=== PATIENT | female | born 1960 | race Caucasian/White ===

== ENCOUNTER 2019-01-21 08:24 | Inpatient (IN) | payer OTHER, SELFPAY ==
[2019-01-07 08:22] VITALS: BMI 41.9
[2019-01-21] VITALS (15 sets, daily range): BP systolic 125–165; BP diastolic 51–84; PULSE 74–97; RESP 12–21; TEMP 36.2–37.2; O2SAT 91–98; BMI 41.9
--- NOTE | 2019-01-21 | DI.RAD.S_ITS ---
PROCEDURE: XR PELVIS 1-2V INDICATIONS: INNER OP PIC TECHNIQUE: Intra-operative view of the pelvis and hip acquired. COMPARISON: None. FINDINGS: Bones: Intraoperative devices prior to placement of arthroplasty prostheses are in expected positions. No fractures or suspicious bony lesions. Soft tissues: Overlying surgical retractors are present, along with other intraoperative changes. IMPRESSION: Right hip arthroplasty with intraoperative device in appropriate position. Dictated by: Shira Romano M.D. on 01/21/2019 at 16:16 Approved by: Shira Romano M.D. on 01/21/2019 at 16:17
--- NOTE | 2019-01-21 06:00 | DI.RAD.S_ITS ---
PROCEDURE: XR HIP W PEL IF DONE RT 2V INDICATIONS: post op films TECHNIQUE: AP pelvis and lateral view of the right hip acquired. COMPARISON: None. FINDINGS: Bones: Patient is status post right hip arthroplasty, with hardware components in expected positions. The hip joint appears congruent. The visualized bony structures appear intact. Soft tissues: Overlying postoperative changes are noted. No suspicious soft tissue densities. IMPRESSION: Right hip prosthesis in anatomic alignment. Dictated by: Shira Romano M.D. on 01/21/2019 at 15:08 Approved by: Shira Romano M.D. on 01/21/2019 at 15:08
[2019-01-21] MEDS: ACETAMINOPHEN 325 MG TABLET 975 MG PO ×3 (08:59→20:10)
[2019-01-21] MEDS: PREGABALIN 75 MG CAPSULE PO (08:59)
[2019-01-21] MEDS: LACTATED RINGERS 1,000 ML 42 ML IV ×2 (09:17→13:59)
[2019-01-21] MEDS: VANCOMYCIN 1,000 MG/200 ML PIGGYBACK 200 MG IV (09:32)
--- NOTE | 2019-01-21 10:17 | PM.PREOP ---
Pre-operative Note Interval Note History & Physical reviewed/Exam performed by Physician: Yes Changes to H&P: No
--- NOTE | 2019-01-21 10:19 | P.OP_ITS ---
Operative Date/Time/Diagnoses Date of procedure: 01/21/19 Time of procedure: 11:17 Pre-op diagnosis: right hip OA Post-op diagnosis: same Procedure & Clinicians Procedure: Right total hip arthroplasty Same procedure as scheduled: Yes Indications: The patient has had progressively worsening right hip pain with radiographic changes consistent with arthritis. Non-operative management has failed and the patient has requested total hip replacement. The risks, benefits and alternatives to surgery were discussed with the patient prior to proceeding. Risks discussed included, but were not limited to, failure to relieve pain, leg length discrepancy, dislocation, stiffness, infection, nerve damage, deep venous thrombosis, pulmonary embolism, stroke, coma, heart attack, permanent paralysis and , as well as the potential need for eventual revision of the prosthetic. Surgeon: Sommer Hunter Bodywork Therapist: Hilary Jackson Anesthesia Type: Spinal Operative Notes Findings: Severe right hip osteoarthritis, good stability Closure Type: primary Specimen(s): none sent Prosthetic devices, grafts, tissues, transplants, or devices: Hunter [employer]hew 50 R3 cup, 115 mm screw, 32 x 50 polyethylene liner, size 5 standard offset anthology, 32+ 0 head Oxinium Applied: drain(s) Estimated Blood Loss (mL): 250 Blood products transfused: none Procedure in detail: The patient was seen in the pre-operative area, where the patient identified the right hip as the operative site and this was marked with my initials. The patient received pre-operative antibiotics and was taken to the operating room and placed on the operative table in the left lateral decubitus position after satisfactory anesthesia. A maritime officer out was performed. The right leg was prepared from the ankle to the iliac crest with ChloroPrep in the usual fashion and draped through sterile drapes. The hip was approached through an approximately 24 cm incision centered over the greater trochanter and curving gently posteriorly as it went proximally. She had significant subcutaneous tissues about 7-8 cm from skin to fascia. This was carried sharply to the fascia kristina, which was divided and retracted with a self retaining retractor. The trochanteric bursa was excised with care being taken to avoid the sciatic nerve, which was identified and protected throughout the case. The short external rotators were incised and the capsulomuscular flap was raised and tagged for later repair. The hip was dislocated, and a femoral neck osteotomy performed approximately 15 mm above the lesser trochanter. Retractors were placed around the femur. The canal was opened with a box cutting osteotome, followed by a T handled reamer and a lateralizing reamer. The chili pepper broach was then used, followed by sequential broaching until there was good stability of the broach in the femur. Retractors were placed to expose the acetabulum. The labrum and central soft tissues were removed. Reaming was performed initially going up in 2 mm increments, then 1 mm increments until good bite was obtained with an odd sized reamer. The cup 1 mm larger than the last reamer was then inserted using the appropriate anteversion guides. A 15 mm screw was inserted to further stabilize the cup. The position was meticulously checked. A trial neutral liner was placed. The broach was placed in the canal. A trial head and neck were then placed and the hip relocated and checked for leg length and stability. An intraoperative film confirmed the component position and no evidence of fracture. The patient was stable in the position of sleep, of squatting, and could be put through a range of motion with 45 degrees internal rotation without dislocation. At 90 degrees flexion, internal rotation to 70 was possible before dislocation. This was felt to be satisfactory and the appropriate components were opened, and the trials were removed. The acetabular liner was impacted into position. The final stem was then impacted into the prepared femoral canal. A brief Betadine soak was performed while trialing with head options. The hip was meticulously irrigated with normal saline. Finally the femoral head was impacted onto the stem. She was pretty tight at this point we actually had to give her some supplemental succinylcholine to reduce the hip. The acetabulum was cleared of all material and the hip relocated one final time. The capsulomuscular flap was then repaired to the greater trochanter though an awl hole using the tag sutures. The short external rotators were repaired with a nonabsorbable suture. A deep drain was placed and brought out anteriorly. The fascia kristina was closed with Vicryl. The subcutaneous layer was closed with barbed sutures and SteriStrips. An Aquacel Ag dressing was applied and the patient was taken to recovery having tolerated the procedure well. Complications: none Condition: stable Disposition: Acute Care Plan for aftercare: The patient will be maintained on a standard total hip replacement protocol with weight bearing as tolerated and posterior hip precautions. The patient will receive Aspirin and sequential compression devices for DVT prophylaxis. The patient will be discharged home when safe for the home environment.
[2019-01-21] MEDS: CEFAZOLIN 2 GM/100 ML FROZ.PIGGY IV ×2 (11:05→20:09)
--- NOTE | 2019-01-21 11:48 | SUR.OPER ---
Lateral on padded OR bed. Gel axillary roll. Arms secured on padded armboard with pillow supporting top arm. Padded hip positioner braces x4 - anterior and posterior chest and pelvis. Additional gel pad used anterior pelvis. Gel pad under bottom leg from knee to foot and secured with tape over sheet.
[2019-01-21] MEDS: BUPIVACAINE LIPOSOME 266 MG/20 ML VIAL INJ (12:01)
[2019-01-21] MEDS: BUPIVACAINE 0.25% W/ EPI 30 ML VIAL 60 ML INJ (12:02)
[2019-01-21] MEDS: EPINEPHrine 1 MG/ML AMPUL IRR (12:02)
[2019-01-21] MEDS: TRANEXAMIC ACID 1,000 MG VIAL 1000 MG INJ (12:04)
[2019-01-21] MEDS: fentaNYL 100 MCG/2 ML INJ 50 MCG IV ×2 (14:36→14:56)
[2019-01-21] MEDS: OXYCODONE IR 5 MG TABLET PO ×3 (15:04→20:10)
[2019-01-21] MEDS: LACTATED RINGERS 1,000 ML 125 ML IV (16:50)
[2019-01-21] MEDS: diazePAM 5 MG TABLET PO (17:16)
--- NOTE | 2019-01-21 18:07 | PT.IIE ---
Current Diagnoses Unilateral primary osteoarthritis, right hip (01/21/19) Surgery Performed Operation Date: 01/21/19 10:45 Actual Procedures p Total Hip Arthroplasty(Right) - Sommer Hunter MD Surgical History (Last Updated 01/07/19 @ 09:30 by Lashawn Mascorro, RN) History of ear surgery (Acute) History of lumbar laminectomy (Acute ~2012) History of nasal surgery (Acute ~2007) History of tonsillectomy and adenoidectomy (Acute) Hx of laparoscopy (Acute) Medical History (Last Updated 01/07/19 @ 09:25 by Lashawn Mascorro RN) Arthritis (Acute) Bronchitis (Acute) GERD (gastroesophageal reflux disease) (Acute) H/O: hysterectomy (Acute) HLD (hyperlipidemia) (Acute) HTN (hypertension) (Acute) Hypothyroidism (Acute) Neuropathy (Acute) Osteoarthritis (Acute) Seasonal allergies (Acute) Sleep apnea (Acute) Physical Therapy Inpatient Evaluation/Re-Eval M1 PT/OT-IP Prior Functional Status Start: 01/21/19 17:18 Freq: NEEDED Status: Active Protocol: Document 01/21/19 18:00 [facility] (Rec: 01/21/19 18:07 [facility] [id number]) Medical Review Prior Functional Status Medical History Reviewed Yes Diet/Fluid Consistency Regular Communication WNL Mobility and Gait indep without AD but repors she had a bad gait and slow gait d/t pain that caused her to have L achilles issues Activities of Daily Living and IADL's Indep with ADLs and typically helps with cooking and cleaning. Social History Household Members significant other Living Arrangements House Number of Floors (Floors) One Floor Number of Stairs To Enter/Railing? 1STE; has a step up to get into bed Home Environment Standard Height Toilet High Toilet Tub/Shower Home Equipment Raised Toilet Seat Without Armrests Shower Seat without Backrest Grab Bars In Shower Employment Status Retired Additional Social History Comment is working and plans to take Wed and Thurs off. He has Sat and Sun off M2 PT-IP Current Condition Start: 01/21/19 17:18 Freq: NEEDED Status: Active Protocol: Document 01/21/19 18:00 [facility] (Rec: 01/21/19 18:07 [facility] [id number]) Physical Therapy Current Condition Current Condition Evaluation Date 06/25/19 Treatment Diagnosis R ERASMO post approach Precautions Posterior Hip Precautions No Hip Flexion > 90 degrees No Hip Internal Rotation No Hip Adduction Weight Bearing Status Weight Bearing Status Weight Bear as Tolerated M3 PT-IP Subjective Start: 01/21/19 17:18 Freq: NEEDED Status: Active Protocol: Document 01/21/19 18:00 [facility] (Rec: 01/21/19 18:07 [facility] [id number]) Subjective Physical Therapy Visit Type Type Initial Evaluation Visit Start Time 17:15 Visit Stop Time 17:55 Total Visit Minutes 40 Number of EMBROIDERY OPERATOR Visits 0 Physical Therapy Visit Comments Patient Goals To go home tomorrow Therapy Pain Assessment Pain When Pain Assessed At Rest Pain Present Pain Present Pain Reported Location R buttocks Description Aching Burning Pain Management Techniques Apply Cold Re-positioning M4 PT-IP Mobility and Gait Start: 01/21/19 17:18 Freq: NEEDED Status: Active Protocol: Document 01/21/19 18:00 [facility] (Rec: 01/21/19 18:07 [facility] [id number]) PT-Bed Mobility Assessment Supine to Sit Supine to Sit Minimal Assistance Bedrails Scooting Scooting to Edge of Bed Standby Assistance PT-Transfer Assessment Sit to and From Stand Sit to and from Stand Contact Guard Assistance Use of Upper Extremities Equipment Transfer Assistive Device Gait Belt Front Wheeled Walker Orthotic/Prosthetic Devices or Brace: No Comments Mobility Comments Pt stood from bed to ambulate then from toilet to ambulate. CGA for both sit<>Stand w/use of UEs Gait Assessment Gait Gait Assistance Required: Contact Guard Assist Distance (Feet) 50 Able to Maintain Weight Bearing Status Yes During Gait Assistive Devices Assistive Device Gait Belt Front Wheeled Walker Orthotic/Prosthetic Devices or Brace: No Gait Deviations General Gait Pattern Antalgic Decreased Stride Length Factors Limiting Gait Function Factors Limiting Gait Function Decreased Strength Pain Poor Balance Comments Gait Comments Pt able to amb around room 2x then sit on toilet and wipe self then amb to sink to wash hands then to chair CGA. Cueing for sit <>stand PT-Balance Assessment Sitting Balance and Reactions Static Sitting Balance Ability Normal Dynamic Sitting Balance Ability Normal Standing Balance and Reactions Static Standing Balance Ability Fair Dynamic Standing Balance Ability Fair Device Used FWW M5 PT-IP Objective Assessments Start: 01/21/19 17:18 Freq: NEEDED Status: Active Protocol: Document 01/21/19 18:00 [facility] (Rec: 01/21/19 18:07 [facility] [id number]) Orientation Orientation/Cognition Level of Alertness Alert Gross Range of Motion Lower Extremity ROM Assessment Right Impaired Strength Lower Extremity Strength Assessment Right Impaired M6 PT-IP Treatment Start: 01/21/19 17:18 Freq: NEEDED Status: Active Protocol: Document 01/21/19 18:00 [facility] (Rec: 01/21/19 18:07 [facility] [id number]) Physical Therapy Treatment Education Education Provided Precautions Weight Bearing Status Post-Op Packet Safety M7 PT-IP Assessment and Plan Start: 01/21/19 17:18 Freq: NEEDED Status: Active Protocol: Document 01/21/19 18:00 [facility] (Rec: 01/21/19 18:07 [facility] [id number]) PT Summary Assessment and Plan Potential Rehabilitation Potential Good Status of Condition at Evaluation Evolving Summary Impairments Pain ROM Strength Balance Bed Mobility Transfers Gait Assessment Summary Pt is doing well with her mobility on day of surgery, requiring min A only for bed mobility and pt encouraged to try to do as much as she can with just supervision of nursing vs physical assist as she is hopeful to go home tomorrow. She is likely to achieve that if she can ambulate appropriate household distances safely and navigate step up into bed and into house with SBA. Goals Bed Mobility Goal Independent Transfer Goal Independent Gait Goal Standby Assistance Gait Distance 150ft Other Goals up/down 1 step with FWW SBA Days to Meet Goals 3 Frequency of Treatment Frequency Of Treatment Twice a Day Treatment Plan Physical Therapy Treatment Plan Bed Mobility Training Transfer Training Gait Training Therapeutic Exercise Balance Retraining Post Op Education Discharge Planning Hot or Cold Pack Neuromuscular Re-ed Recommendations To Nursing Amount of Assist Needed 1 Person Assist Discharge Recommendations PT Discharge Recommendations Home with Assistance Outpatient PT
[2019-01-21] MEDS: PRAVASTATIN 20 MG TABLET 10 MG PO (20:12)
[2019-01-21] MEDS: TRAMADOL 50 MG TABLET PO (20:12)
[2019-01-21] MEDS: DOCUSATE 100 MG CAPSULE PO (20:12)
[2019-01-21] MEDS: dilTIAZem CD 240 MG CAP PO (20:12)
[2019-01-22] MEDS: OXYCODONE IR 5 MG TABLET PO ×3 (00:24→08:45)
[2019-01-22 00:30] VITALS: BP 117/77; PULSE 81; RESP 16; TEMP 36.7; O2SAT 96
[2019-01-22] MEDS: LACTATED RINGERS 1,000 ML 125 ML IV (02:00)
[2019-01-22] MEDS: CEFAZOLIN 2 GM/100 ML FROZ.PIGGY IV (03:08)
[2019-01-22 05:38] LABS: Hematocrit 35.3 % (36-46); Hemoglobin 11.8 g/dL (12.0-16.0)
[2019-01-22 05:50] VITALS: BP 136/70; PULSE 90; RESP 20; TEMP 36.4; O2SAT 95
[2019-01-22] MEDS: diazePAM 5 MG TABLET PO (05:53)
--- NOTE | 2019-01-22 06:42 | PC.NURSE ---
Medicated with 2 doses of 5 mg. Percolone & requested Valium 5 mg. PO for muscles spasms with good relief. SCD's was off for 1 hour when she ambulated to the BR. Tried to applied her SCD's after it was off for 1 hour, but she refused to put SCD's back on. States I will do my ankle waving & move my legs. Wore her SCD's all night. Will monitor.
--- NOTE | 2019-01-22 07:57 | PM.DS.1 ---
History of Present Illness Date Patient Seen: 01/22/19 Time Patient Seen: 07:58 Chief complaint: [id number] Narrative: Hospital day 2, postop day 1 following right posterior total hip arthroplasty by Dr. Hunter. Patient remained stable postoperatively. She did work well with PT yesterday. She is a [facility] patient and anticipate going home today. She does have physical therapy scheduled at [facility] in [place]. Hemovac with 55 mL during the past 8 hours. Discharge Providers Date of admission: 01/21/19 08:24 Discharge Date: 01/22/19 Consults: 01/21/19 06:00 Consult to Anesthesiology Routine Comment: Consulting Provider: Anesthesiologist Reason for consultation: Regional block for post operative pain control 01/21/19 09:06 Consult to Respiratory Therapy Evaluate & Treat Comment: Physician Instructions: Evaluate and treat 01/21/19 16:23 Consult to Discharge Planning Routine Comment: Consult to Physical Therapy Evaluate & Treat Comment: Physician Instructions: post op ERASMO protocol Consult to Respiratory Therapy Evaluate & Treat Comment: Physician Instructions: Evaluate and treat Discharge provider: Jorge Souza PA-C Summary Discharge Diagnosis: Status post right total hip arthroplasty Hospital Course: Patient brought to hospital on 01/21/2019 for above noted surgery. She remained stable postoperatively. Progressed well with physical therapy. Ready for discharge home on postop day 1. Exam Vital Signs (past 8 hours): - 01/22/19 00:30 01/22/19 05:50 Temperature 98.1 F 97.6 F Pulse Rate 81 90 Respiratory Rate 16 20 Blood Pressure 117/77 136/70 Pulse Oximetry 96 95 Oxygen Delivery Method Room Air Oxygen Flow Rate 0 Narrative Exam Narrative: Alert, oriented no acute distress resting in bed. Legs. Jake dressing to right posterior hip incision intact without signs of infection or inflammation. Good vacuum. Hemovac in place. No calf pain or swelling. Pulses symmetrical. Objective Labs Result Diagrams: 01/22/19 05:00 Labs: Laboratory Results - last 24 hr 01/22/19 05:00 Hgb 11.8 L Hct 35.3 L Discharge Plan Discharge Plan Patient Disposition: Home Discharge Med Rec/Prescriptions Prescriptions: New enoxaparin [Lovenox] 40 mg/0.4 mL Syringe 40 mg subcut DAILY Qty: 9 RF: 0 Continued diltiazem HCl 240 mg Capsule,Extended Release 24hr 240 mg PO BEDTIME RF: 0 potassium 99 mg Tablet 99 mg PO DAILY RF: 0 pravastatin 10 mg Tablet 10 mg PO BEDTIME RF: 0 ibuprofen 200 mg Tablet 400 mg PO QD-BID PRN (Reason: Pain) RF: 0 ipratropium bromide 42 mcg (0.06 %) [place],Non-Aerosol 2 spray INTRANASAL QAM RF: 0 fluticasone propionate 50 mcg/actuation [place],Suspension 1 spray INTRANASAL DAILY RF: 0 magnesium oxide 250 mg magnesium Tablet 250 mg PO DAILY RF: 0 levocetirizine 5 mg Tablet 5 mg PO DAILY RF: 0 thyroid (pork) [[place] Thyroid] 30 mg Tablet 30 mg PO DAILY RF: 0 tramadol 50 mg Tablet 50 mg PO BEDTIME RF: 0 cetirizine [Zyrtec] 10 mg Tablet 10 mg PO DAILY RF: 0 Provider Discharge Instructions Diet: Diet as Tolerated Activity: Ambulate as tolerated. Use walker as needed. Right posterior total hip arthroplasty protocol x6 weeks postop. Cold/Heat Therapy: Cold pack to right hip as needed. Skin/Wound/Dressing Care Report to your healthcare provider any signs of infection, such as:: chills, fever, night sweats, increased pain, unusual drainage and unusual redness Dressing: Keep jake dressing in place until postop visit. Visit Report/Discharge Packet Instructions: DI for Hip Replacement Discharge Data Attending Provider: Sommer Hunter Admit Date/Time: 01/21/19 08:24
--- NOTE | 2019-01-22 08:00 | P.DS_ITS ---
History of Present Illness Date Patient Seen: 01/22/19 Time Patient Seen: 07:58 Chief complaint: [id number] Narrative: Hospital day 2, postop day 1 following right posterior total hip arthroplasty by Dr. Hunter. Patient remained stable postoperatively. She did work well with PT yesterday. She is a [facility] patient and anticipate going home today. She does have physical therapy scheduled at [facility] in [place]. Hemovac with 55 mL during the past 8 hours. Discharge Providers Date of admission: 01/21/19 08:24 Discharge Date: 01/22/19 Consults: 01/21/19 06:00 Consult to Anesthesiology Routine Comment: Consulting Provider: Anesthesiologist Reason for consultation: Regional block for post operative pain control 01/21/19 09:06 Consult to Respiratory Therapy Evaluate & Treat Comment: Physician Instructions: Evaluate and treat 01/21/19 16:23 Consult to Discharge Planning Routine Comment: Consult to Physical Therapy Evaluate & Treat Comment: Physician Instructions: post op ERASMO protocol Consult to Respiratory Therapy Evaluate & Treat Comment: Physician Instructions: Evaluate and treat Discharge provider: Jorge Souza PA-C Summary Discharge Diagnosis: Status post right total hip arthroplasty Hospital Course: Patient brought to hospital on 01/21/2019 for above noted surgery. She remained stable postoperatively. Progressed well with physical therapy. Ready for discharge home on postop day 1. Exam Vital Signs (past 8 hours): - 01/22/19 00:30 01/22/19 05:50 Temperature 98.1 F 97.6 F Pulse Rate 81 90 Respiratory Rate 16 20 Blood Pressure 117/77 136/70 Pulse Oximetry 96 95 Oxygen Delivery Method Room Air Oxygen Flow Rate 0 Narrative Exam Narrative: Alert, oriented no acute distress resting in bed. Legs. Jake dressing to right posterior hip incision intact without signs of infection or inflammation. Good vacuum. Hemovac in place. No calf pain or swelling. Pulses symmetrical. Objective Labs Result Diagrams: 01/22/19 05:00 Labs: Laboratory Results - last 24 hr 01/22/19 05:00 Hgb 11.8 L Hct 35.3 L Discharge Plan Discharge Plan Patient Disposition: Home Discharge Med Rec/Prescriptions Prescriptions: New enoxaparin [Lovenox] 40 mg/0.4 mL Syringe 40 mg subcut DAILY Qty: 9 RF: 0 Continued diltiazem HCl 240 mg Capsule,Extended Release 24hr 240 mg PO BEDTIME RF: 0 potassium 99 mg Tablet 99 mg PO DAILY RF: 0 pravastatin 10 mg Tablet 10 mg PO BEDTIME RF: 0 ibuprofen 200 mg Tablet 400 mg PO QD-BID PRN (Reason: Pain) RF: 0 ipratropium bromide 42 mcg (0.06 %) [place],Non-Aerosol 2 spray INTRANASAL QAM RF: 0 fluticasone propionate 50 mcg/actuation [place],Suspension 1 spray INTRANASAL DAILY RF: 0 magnesium oxide 250 mg magnesium Tablet 250 mg PO DAILY RF: 0 levocetirizine 5 mg Tablet 5 mg PO DAILY RF: 0 thyroid (pork) [[place] Thyroid] 30 mg Tablet 30 mg PO DAILY RF: 0 tramadol 50 mg Tablet 50 mg PO BEDTIME RF: 0 cetirizine [Zyrtec] 10 mg Tablet 10 mg PO DAILY RF: 0 Provider Discharge Instructions Diet: Diet as Tolerated Activity: Ambulate as tolerated. Use walker as needed. Right posterior total hip arthroplasty protocol x6 weeks postop. Cold/Heat Therapy: Cold pack to right hip as needed. Skin/Wound/Dressing Care Report to your healthcare provider any signs of infection, such as:: chills, fever, night sweats, increased pain, unusual drainage and unusual redness Dressing: Keep jaek dressing in place until postop visit. Visit Report/Discharge Packet Instructions: DI for Hip Replacement Discharge Data Attending Provider: Sommer Hunter Admit Date/Time: 01/21/19 08:24
--- NOTE | 2019-01-22 08:42 | CM.DANOTE ---
DCP/Assessment: Reviewed chart. Patient is a 58yr old female admitted to [facility] for right ERASMO performed by Dr. Hunter on 01-21-19. Primary payor is 1)Nestor Taylor. No PCP listed. Met with patient explained CM/SW role. Patient alert and oriented sitting in recliner at time of visit. Patient reports that she resides with her janae/Jb in [place]. Patient plans to d/c home today. Patient seen and cleared by therapy. Patient reports that she has all needed DME and plans to do outpatient therapy at Orthoped[facility] in [facility]. P: Home today. ERNESTINA Spears Discharge Planning/Care Management CM Discharge Assessment Start: 01/22/19 08:39 Freq: Status: Active Protocol: Document 01/22/19 08:40 KJS (Rec: 01/22/19 08:42 KJS [id number]) Discharge Planning Assessment Assigned Chemistry Technologist ERNESTINA Spears Contact [facility] Advance Directives? Yes Advance Directives on File Yes History Provided By Patient Medical Record Prior Living Arrangements House Household Members significant other Type of transporation used prior to Drives own vehicle admit Independent with ADL's Yes Is patient alert and oriented? Yes Caregiver for Another No DME Already Rented / Owned FWW / Walker Cane Patient/Family Preference OP PT Therapy Barriers to Discharge No Discharge Plan Home Transportation Arrangement [facility] to provide transport. Referrals Initiated None needed Whiteboard Updated in Patient Room with Yes name and ext. # of Chemistry Technologist Review Status In Process Next Review Type Continued Stay Review Pre-Anesthesia Assessment Start: 01/07/19 08:22 Freq: Status: Active Protocol: Document 01/07/19 08:22 CAB (Rec: 01/07/19 09:45 CAB [id number]) Pre-Anesthesia Assessment PAC Comment UA cx'd/pending Patient Information Reviewed Via Phone Assessment Assessment Completed With Patient Diagnostic Results BMP/CMP CBC EKG Urinalysis Other Comment A1c. Outside labs/EKG 01/07/19 scanned to record Primary Care Provider Seen Specialist in Last 12 Months Yes Specialist Seen ENT Orthopedist Primary Language [place] It Security Consultant Required No Height 167.64 cm Weight 117.934 kg Body Mass Index (BMI) 41.9 Hearing Ability Normal Visual Assist Glasses Dentition Type Teeth, Natural Present Barriers to Learning None Other Aids No Hx Anesthesia Reactions Yes: Nausea/vomiting s/p laparoscopy Hx Family Anesthesia Reaction No Hx Malignant Hyperthermia No Hx Blood Transfusions No Anesthesia Review Requested No Manager Environmental No alcohol intake current alcohol intake frequency 0-2 drinks per day Smoking Status Former smoker how long ago did patient quit smoking Quit 2008 Substance Use Type marijuana other Comment CBD tincture, edible marijuana Pain Present Pain Reported Musculoskeletal Symptoms Abnormal Gait Back Pain Difficulty Walking Joint Pain Neck Pain History of Falling (Recent or History of No ) Patient is completely paralyzed or No completely immobile Mental Status Oriented to own ability Is patient on oxygen? No Does patient have MAC/SOB No Hx Sleep Apnea Yes CPAP/BIPAP use prescribed and used routinely Will Bring CPAP/BIPAP DOS Yes Currently Taking a Beta Leticia No Can You Climb a Flight of Stairs Without Yes SOB Hx Chest Pain No Hx SOB No Hx Syncope or Dizziness No Anti-Coagulant Therapy No Has a Vp Digital Marketing Social Media And Crm No Cardiac Testing No Hx Pacemaker/ICD No Pacemaker Rep Required? No Cardiac Clearance Received Not Applicable Diet Type At Home Regular Gluten Free Ketogenic Low Carb dysphagia No Bladder Pattern Incontinent, Stress Urgency Urinary Catheter Present No Hx Urinary Self Catheterization No Diabetes No HgbA1C 5.4 Date 01/07/19 Patient No Lactating No Hx Drug Resistant Organism No Presence of External or Internal Medical Yes: CPAP Devices Have you traveled outside the [facility] in the last 30 days? Marital Status Lives With significant other Prior Living Arrangements House Number of Floors (Floors) One Floor Support System Friend(s) Significant Other Does the Patient Have Assistance After Yes Surgery Patient Discharge Plan Description Return Home Comment Pt not advised on length of stay per surgeon's office Feels Safe in Current Environment Yes Been Physically Hurt or Threatened By a No Person in Current Environment Do you have thoughts of harming yourself None or others? Are you currently considering suicide? No Do you have a plan to hurt yourself or No Plan others? Do You Have Any Spiritual Beliefs That No May Affect Your HC Choices? Do You Have Any Cultural Practices That No May Affect Your HC Choices? Spiritual Referral None Comment Scientologist Who Can We Speak to About Patient's Care Family, friends Identifying Code for Release of Patient Declines to issue Information Health Care Proxy/Next of Kin Jb MacS.O.) Health Care Proxy Emergency Contact Name Jb (S.O.) Emergency Contact Advance Directives? No: Information mailed to patient Power of Correction Officer [place] [facility] No PAC Instructions Bring CPAP/BIPAP Do not shave/clip surgical site Durable medical equipment Medications to take/avoid Nasal antibiotic No ETOH/petroleum product on skin DOS NPO Post-op transportation Pre-surgical wash Sturdy shoes/comfortable clothes Do not bring valuables and remove jewelry
[2019-01-22] MEDS: THYROID, PORK 30 MG TABLET PO (08:45)
[2019-01-22] MEDS: ACETAMINOPHEN 325 MG TABLET 975 MG PO (08:46)
[2019-01-22] MEDS: MAGNESIUM OXIDE 400 MG TABLET 200 MG PO (08:46)
[2019-01-22] MEDS: DOCUSATE 100 MG CAPSULE PO (08:47)
[2019-01-22] MEDS: ENOXAPARIN 40 MG/0.4 ML SYRINGE SUBCUT (08:47)
[2019-01-22] MEDS: LORATADINE 10 MG TABLET PO (08:47)
[2019-01-22 09:11] VITALS: BP 112/89; PULSE 97; RESP 18; TEMP 36.7; O2SAT 97
--- NOTE | 2019-01-22 10:35 | PC.NURSE ---
Pt given 5mg of po oxycodone for pain control to R.hip.. Incision is dressed with a jake drain dressing. Motor connected to dressing is flashing green and working well. CMS wnl and ppx2. Pt is transferring with 1pa and walker well. She has a hemvac drain that is putting out minimal drainage, this will be pulled when pts discharges home later today. Visiting with and working with physical therapy now.
== END 2019-01-22 11:48 | disposition home or self-care (01) | DRG 470 ==
PROVIDERS: Admitting Provider Orthopaedic Surgery; Visit Provider Orthopaedic Surgery
PROC: 0SR90JZ Replacement of Right Hip Joint with Synthetic Substitute, Open Approach (ICD-10-PCS; CPT 27130; principal; 2019-01-21 10:45)
DX: M16.11 Unilateral primary osteoarthritis, right hip (principal); Z68.41 Body mass index [BMI] 40.0-44.9, adult; G47.33 Obstructive sleep apnea (adult) (pediatric); I10 Essential (primary) hypertension; Z87.891 Personal history of nicotine dependence; E66.01 Morbid (severe) obesity due to excess calories
CPT/HCPCS: 36415; 72170; 73502; 85014; 85018; 97116; 97162; 97530; C1776; C9290; J0171; J0690; J1650; J2250; J2704; J3010

== ENCOUNTER 2023-06-12 06:08 | Day surgery (SDC) | payer OTHER, SELFPAY ==
[2019-01-21 17:18] VITALS: BMI 41.9
[2023-06-04 09:47] VITALS: BMI 42.7
[2023-06-12] VITALS (14 sets, daily range): BP systolic 117–146; BP diastolic 50–67; PULSE 18–86; RESP 12–31; TEMP 35.7–36.7; O2SAT 90–98; BMI 41.5
--- NOTE | 2023-06-12 06:00 | DI.RAD.S_ITS ---
PROCEDURE: XR KNEE LT 1TO2V INDICATIONS: TKA TECHNIQUE: 2 view(s) of the knee acquired. COMPARISON: [facility] Jones Lomeli, CR, XR KNEE 4+ VIEWS LEFT, 03/09/2023, 11:02. FINDINGS: Bones: Patient is status post knee joint arthroplasty. Hardware components are in expected positions. Visualized bony structures are intact. Soft tissues: Overlying postoperative changes are noted. IMPRESSION: Status post interval left total knee arthroplasty without evidence for hardware complication. Dictated by: Dandre Nunez M.D. on 06/12/2023 at 18:50 Approved by: Dandre Nunez M.D. on 06/12/2023 at 18:51
[2023-06-12] MEDS: VANCOMYCIN 1,000 MG/200 ML PIGGYBACK 200 MG IV (06:53)
[2023-06-12] MEDS: ACETAMINOPHEN 325 MG TABLET 975 MG PO (06:56)
[2023-06-12] MEDS: LACTATED RINGERS 1,000 ML 42 ML IV ×2 (06:58→08:55)
--- NOTE | 2023-06-12 07:40 | P.OP_ITS ---
Operative Date/Time/Diagnoses Date of procedure: 06/12/23 Time of procedure: 07:40 Pre-op diagnosis: left knee OA Post-op diagnosis: same Procedure & Clinicians Procedure: left total knee arthroplasty Same procedure as scheduled: Yes Indications: The patient has had progressively worsening right knee pain with radiographic changes consistent with arthritis. Non-operative management has failed and the patient has requested total knee replacement. The risks, benefits and alternatives to surgery were discussed with the patient prior to proceeding. Risks discussed included, but were not limited to, failure to relieve pain, stiffness, infection, nerve damage, deep venous thrombosis, pulmonary embolism, stroke, coma, heart attack, permanent paralysis and , as well as the potential need for eventual revision of the prosthetic. Surgeon: Sommer uHnter Television And Radio Repairer: Bakair Urrutia Anesthesia Type: General Operative Notes Findings: Severe left knee OA, adequate stability Closure Type: primary Specimen(s): none sent Prosthetic devices, grafts, tissues, transplants, or devices: Hunter and nephew ani BCS 2 size femur 5, size 3 tibia, +9 poly, 32 x 7-1/2 mm patella Estimated Blood Loss (mL): 250 Blood products transfused: none Tourniquet time (min): 74 Procedure in detail: The patient was seen in the pre-operative area, where the patient identified the right knee as the operative site and this was marked with my initials. The patient received pre-operative antibiotics, and was taken to the operating room and placed on the operative table in the supine position. After satisfactory anesthesia, a oil field pipeline supervisor out was performed. The right leg was encircled with a tourniquet about the proximal thigh, and the leg was prepared from the toes to the tourniquet with ChloroPrep in the usual fashion and draped through sterile drapes. The leg was elevated and exsanguinated with Eschmark bandage and the tourniquet inflated to [250] mmHg pressure. A PA was used throughout the procedure and was essential for intraoperative retraction and safe implantation of the components. The knee was approached through an approximately 18 cm incision centered over the patella and carried into the knee through a medial parapatellar arthrotomy. A portion of the medial and lateral meniscus was resected. Soft tissue was carefully mobilized around the patella the patella was measured with a caliper. Bone was resected from the patella and the patellar height was reconstituted with up an appropriate sized patellar component. A cover was then placed on the patella. A small amount of additional medial and lateral meniscus was resected. The distal femur was cut at 5?. A [+2] cut was used. It looked like an appropriate distal femoral cut and the cut was made without difficulty. An extramedullary guide was used for the tibial cut. 10 mm was resected off the least affected side.The tibia was prepared. The rotation was assessed. The patient was placed in extension residual medial and lateral meniscus as well as any residual bone was carefully resected. [No] additional tibia was resected. Hemostasis was achieved especially posteriorly. Additional local was injected into the posterior capsule. The extension gap was assessed and additional releases for gap balancing were performed as necessary. It was checked with the gap privacy manager. The femoral component was trial was placed and the notch was finished. The rotation was assessed and the appropriate size femoral guide was placed on the distal femur and finishing cuts were made. There is no evidence of notching. The anterior, posterior and chamfer cuts were then made. The posterior osteophytes and soft tissues were then removed. The posterior capsule was injected with part of a mixture of 60 ml 0.25% Marcaine mixed with 20 ml Exparel for post operative pain control. The remainder of this mixture was injected into the capsule and subcutaneous tissues during cement curing. The tibial and femoral components were then placed and the knee placed through a range of motion. Range of motion was [0-130], with good stability throughout the range. The trials were then removed, and the tibia was finished. The bone was prepared with pulsatile lavage, and dried with a sponge. Cement was applied and the final prosthetics placed. Excess cement was removed during and after cement curing. A brief Betadine soak was performed. After confirming there was no extruded cement posteriorly, the final tibial insert was placed. The knee was copiously irrigated and the tourniquet deflated. Hemostasis was obtained with the Bovie cautery. The capsule was closed with interrupted nonabsorbable suture. The subcutaneous layer was closed with barbed sutures, and the skin with a running 3-0 V-Lock suture and Surgical glue. A Aquacel dressing was applied and the patient was taken to recovery having tolerated the procedure well. Complications: none Post-operative Condition: stable Disposition: same day surgery Plan for aftercare: The patient will be maintained on a standard total knee replacement protocol with weight bearing as tolerated. The patient will receive Xarelto or Lovenox and sequential compression devices for DVT prophylaxis. The patient will be discharged home when safe for the home environment.
--- NOTE | 2023-06-12 07:40 | PM.PREOP ---
Pre-operative Note Interval Note History & Physical reviewed/Exam performed by Physician: Yes Changes to H&P: No
[2023-06-12] MEDS: CEFAZOLIN 2 GM/100 ML PREMIX 100 ML IV (08:00)
--- NOTE | 2023-06-12 08:17 | SUR.OPER ---
Supine on padded OR bed. Pillow under head, arms secured on padded armboards <90 degree abduction. Safety belt across torso. Non-operative leg secured with tape over blanket over lower leg. Operative leg secured in DeMayo positioner. Foam padded brace at thigh of operative leg.
[2023-06-12] MEDS: BUPIVACAINE LIPOSOME 266 MG/20 ML VIAL INJ (08:21)
[2023-06-12] MEDS: BUPIVACAINE 0.25% (PF) 60 ML, EPINEPHrine 0.3 MG INJ (08:23)
[2023-06-12] MEDS: TRANEXAMIC ACID 1,000 MG VIAL 1000 MG INJ ×2 (08:24→09:40)
[2023-06-12] MEDS: SODIUM CHLORIDE IRRIG SOLUTION 250 ML, POVIDONE-IODINE SPONGE STICKS 1 APPLIC IRR (08:24)
[2023-06-12] MEDS: ONDANSETRON 4 MG/2 ML INJ IV (10:07)
[2023-06-12] MEDS: hydrOXYzine 50 MG/ML INJ 25 MG IM (10:07)
[2023-06-12] MEDS: HYDROMORPHONE 1 MG INJ IV ×4 (10:08→10:36)
[2023-06-12] MEDS: OXYCODONE IR 5 MG TABLET PO ×3 (10:27→16:52)
--- NOTE | 2023-06-12 11:20 | PC.NURSE ---
Addendum entered by Jamee Barragan R.N. 06/12/23 17:57: d c orders received. escorted patient and her to the main entrance, assisted her into their car. PRN oxycodone and ibuprofen + IV abx given prior to dc home. Addendum entered by Jamee Barragan R.N. 06/12/23 14:36: 1300: reported bedding is wet! i think i peed! assisted to sit EOB. minimal assistance. reported slight dizziness upon EOB. had her dangle for a bit. my whoo haw is numb! assisted her to walk to the bathroom w/ FWW. still feeling the effects of her spinal. new bedding applied, new SCD's. purewick placed so patient can get some rest. Jb at bedside. Original Note: new admit: dx Left TKA w Dr Hunter. arrived to floor at 11am, a/o, voices needs. tolerating RA. reports pain 4/10 to Left knee. repositioned to get more comfortable. tolerating ice packs and 2 pillows to elevate LLE. + CSM, VSS. LR at 100/hour. oriented to room, call light and TV remote.
[2023-06-12] MEDS: ACETAMINOPHEN 325 MG TABLET 650 MG PO (11:48)
[2023-06-12] MEDS: ONDANSETRON 4 MG ODT PO (11:49)
[2023-06-12] MEDS: IBUPROFEN 400 MG TABLET PO ×2 (11:49→16:52)
[2023-06-12] MEDS: FLUTICASONE 120 SPRAY/16 GM SPRAY.SUSP NASAL (11:53)
[2023-06-12] MEDS: LACTATED RINGERS 1,000 ML 100 ML IV (11:53)
--- NOTE | 2023-06-12 15:27 | PT.IIE ---
Current Diagnoses Unilateral primary osteoarthritis, left knee (06/12/23) Surgery Performed Operation Date: 06/12/23 07:45 Actual Procedures p Total Knee Arthroplasty(Left) - Sommer Hunter MD Surgical History (Last Updated 06/04/23 @ 09:48 by Lashawn Mascorro, RN) H/O: hysterectomy History of ear surgery History of lumbar laminectomy (~2012) History of nasal surgery (~2007) History of tonsillectomy and adenoidectomy History of total right hip replacement (01/21/19) Hx of laparoscopy Medical History (Last Updated 06/04/23 @ 10:22 by Lashawn Mascorro, KIARA) Arthritis Bronchitis GERD (gastroesophageal reflux disease) History of COVID-19 (2019) HLD (hyperlipidemia) HTN (hypertension) Hypothyroidism Neuropathy Osteoarthritis Renal artery aneurysm Seasonal allergies Sleep apnea Physical Therapy Inpatient Evaluation/Re-Eval M1 PT/OT-IP Prior Functional Status Start: 06/12/23 16:32 Freq: NEEDED Status: Active Protocol: Document 06/12/23 16:32 AB (Rec: 06/12/23 16:57 AB [id number]) Medical Review Prior Functional Status Medical History Reviewed Yes Diet/Fluid Consistency Regular Communication Pt is able to express all needs. Mobility and Gait Pt ambulated independently at baseline. Activities of Daily Living and IADL's IND with all ADLs and IADLs though had to modify or take breaks due to pain. Social History Household Members spouse Living Arrangements House Number of Floors (Floors) One Floor Number of Stairs To Enter/Railing? 2 LILIANA, no hand rail Home Environment High Toilet,Tub/Shower Home Equipment Front Wheel Walker,Four Wheel Walker,Straight Cane,Manual Wheelchair,Raised Toilet Seat Without Armrests,Hand Held Shower,Grab Bars Near Toilet, Grab Bars In Shower Additional Social History Comment Pt reports her can assist as needed. M2 PT-IP Current Condition Start: 06/12/23 16:32 Freq: NEEDED Status: Active Protocol: Document 06/12/23 16:32 AB (Rec: 06/12/23 16:57 AB [id number]) Physical Therapy Current Condition Current Condition Evaluation Date 06/12/23 Treatment Diagnosis s/p left TKA; difficulty in walking Onset Date 06/12/23 M3 PT-IP Subjective Start: 06/12/23 16:32 Freq: NEEDED Status: Active Protocol: Document 06/12/23 16:32 AB (Rec: 06/12/23 16:57 AB [id number]) Subjective Physical Therapy Visit Type Type Initial Evaluation Visit Start Time 14:50 Visit Stop Time 15:27 Total Visit Minutes 37 Physical Therapy Visit Comments Patient Comments Pt presents semi supine in bed and is agreeable to PT eval this PM. Therapy Pain Assessment Pain When Pain Assessed During Mobility Pain Present Pain Present Denied Pain M4 PT-IP Mobility and Gait Start: 06/12/23 16:32 Freq: NEEDED Status: Active Protocol: Document 06/12/23 16:32 AB (Rec: 06/12/23 16:57 AB [id number]) PT-Bed Mobility Assessment Rolling Level of Assist Standby Assistance Supine to Sit Supine to Sit Standby Assistance,Bedrails Sit to Supine Sit to Supine Standby Assistance,Bedrails Scooting Scooting to Edge of Bed Standby Assistance PT-Transfer Assessment Sit to and From Stand Sit to and from Stand Standby Assistance,Use of Upper Extremities Equipment Transfer Assistive Device Gait Belt,Front Wheeled Walker Transfers Transfer Destination Bed,Toilet Transfer Technique ambulated Transfer Ability Level of Assist Standby Assistance,Use of Upper Extremities Comments Mobility Comments The pt performed bed mobility with SBA, but required use of upper bed rail to get to sitting. Once sitting, the pt was able to scoot to EOB and perform STS with FWW and SBA. The pt was able to stand with and without FWW, demonstrating good balance. The pt was agreeable to ambulating, and ambulated 150ft with FWW and SBA/CGA. She then performed stair training as below. Upon returning to room, the pt requested to use the bathroom and was able to transfer to/ from toilet with SBA and grab bars. The pt then returned to bed with SBA to perform bed mobility, and was assisted to a comfortable position. All needs were met, call light is within reach and is present in room. Gait Assessment Gait Gait Assistance Required: Standby Assistance Distance (Feet) 150 Able to Maintain Weight Bearing Status Yes During Gait Assistive Devices Assistive Device Gait Belt,Front Wheeled Walker Gait Deviations General Gait Pattern Decreased Stride Length, Decreased Feet Clearance Factors Limiting Gait Function Factors Limiting Gait Function Decreased Activity Tolerance, Decreased Sensation,Decreased Strength,Limited Range of Motion,Pain Comments Gait Comments Gait deviations are consistent with surgical procedure. See mobility comments. Stair Climbing Assessment Evaluation Level of Assist On Stairs Standby Assistance Devices Stair Climbing Assistive Devices Left Railing,Right Railing Technique/Endurance Stair Climbing Direction Ascend and Descend Stair Climbing Technique Step to Step Number of Steps Climbed 3 Query Text: Stair Climbing Set # Repetitions (reps) 4 Comments Stair Climbing Comments Pt ascends leading with RLE and descends leading with LLE. She attempted to use only 1 hand rail, but was unable to due to weakness. Pt was educated on use of SPC and to ascend initially when returning home. PT-Balance Assessment Sitting Balance and Reactions Static Sitting Balance Ability Normal Dynamic Sitting Balance Ability Normal Standing Balance and Reactions Static Standing Balance Ability Normal Dynamic Standing Balance Ability Good Device Used FWW M5 PT-IP Objective Assessments Start: 06/12/23 16:32 Freq: NEEDED Status: Active Protocol: Document 06/12/23 16:32 AB (Rec: 06/12/23 16:57 AB [id number]) Orientation Orientation/Cognition Level of Alertness Alert Orientation Name,Age,Birthday,Month,Date, Year,Day of Week,Place, Situation Language Function Ability No Deficits Noted Safety Awareness Understands Safety Issues Memory Description No Deficits Noted Gross Range of Motion Upper Extremity ROM Assessment Within Functional Limits Lower Extremity ROM Assessment Left Impaired Strength Upper Extremity Strength Assessment Within Functional Limits Lower Extremity Strength Assessment Left Impaired M6 PT-IP Treatment Start: 06/12/23 16:32 Freq: NEEDED Status: Active Protocol: Document 06/12/23 16:32 AB (Rec: 06/12/23 16:57 AB [id number]) Physical Therapy Treatment Education Education Provided Precautions,Weight Bearing Status,Post-Op Packet,Safety Brace Education Patient,Caregiver M7 PT-IP Assessment and Plan Start: 06/12/23 16:32 Freq: NEEDED Status: Active Protocol: Document 06/12/23 16:32 AB (Rec: 06/12/23 16:57 AB [id number]) PT Summary Assessment and Plan Potential Rehabilitation Potential Good Status of Condition at Evaluation Stable Summary Impairments Pain,ROM,Strength,Balance, Sensation,Bed Mobility, Transfers,Gait,Activity Tolerance Assessment Summary Ruth Gama is a 62 year old female patient who is s/p left TKA performed on 06/12/23 . The pt is able to perform all functional mobility with SBA, including ambulating 150ft with FWW and ascending and descending 12 steps. Based on her current level of function, PT recommends discharge to home with assistance and outpatient PT to improve her post surgical outcomes. The pt would benefit from skilled PT to improve her current deficits and level of function. Goals Bed Mobility Goal Independent Transfer Goal Independent,Front Wheeled Walker Gait Goal Independent,Front Wheel Walker Gait Distance 200 Other Goals Pt to ambulate 200ft independently with FWW to show improving strength and tolerance to activity in order to ambulate community distances. Pt to ascend/descend 2 steps using SPC and min FISH FARMER to show improving LE strength. Days to Meet Goals 5 Frequency of Treatment Frequency Of Treatment Twice a Day Treatment Plan Physical Therapy Treatment Plan Bed Mobility Training,Transfer Training,Gait Training, Therapeutic Exercise,Balance Retraining,Post Op Education, Discharge Planning,Hot or Cold Pack,Neuromuscular Re-ed, Coordination Retraining,Manual Therapy Weight Bearing Status Weight Bearing Status Weight Bear as Tolerated Recommendations To Nursing Amount of Assist Needed Standby Assistance Discharge Recommendations PT Discharge Recommendations Home with Assistance, Outpatient PT Transportation Needs at Discharge Private Vehicle
[2023-06-12] MEDS: CEFAZOLIN VIAL 3 GM in SODIUM CHLORIDE 0.9% 100 ML IV (16:52)
--- NOTE | 2023-06-12 16:55 | OT.IPNOTE ---
Pt has discharge orders and able to go over OT needs and pt has all equipments needs and already able to get herself dressed. Just reminded pt to dress her LLE first and take out last. Pt has a supportive to be able to assist her as needed. NO charge
== END 2023-06-12 17:58 | disposition home or self-care (01) ==
LOC: OR 06:09 → AC 06:12
PROVIDERS: PCP Naturopath; Referring Provider Orthopaedic Surgery; Visit Provider Orthopaedic Surgery
PROC: 0SRD0JZ Replacement of Left Knee Joint with Synthetic Substitute, Open Approach (ICD-10-PCS; CPT 27447; principal; 2023-06-12 07:45)
DX: M17.12 Unilateral primary osteoarthritis, left knee (principal); I10 Essential (primary) hypertension; G47.30 Sleep apnea, unspecified; E66.9 Obesity, unspecified; Z68.41 Body mass index [BMI] 40.0-44.9, adult
CPT/HCPCS: 27447; 36415; 73560; 97161; 97535; C1776; C9290; J0171; J0690; J1100; J1170; J2250; J2405; J2704; J3010; J3410